=== PATIENT | male | born 1990 | race Caucasian/White ===

== ENCOUNTER 2018-02-09 22:02 | Emergency (ER) | payer SELFPAY ==
[2018-02-09] MEDS ORDERED: Sodium Chloride 0.9% 1,000 ML IV ONE (22:14)
--- NOTE | 2018-02-09 22:14 | C.PDOC ---
History Of Present Illness Patient presents with worsening mid epigastric pain for over the last 2 days. Has low grade fever, no nausea, vomiting, diarrhea or constipation. Tolerating po. Has not taken anything for his discomfort Time Seen by Provider: 02/09/18 22:13 Chief Complaint (Nursing): Abdominal Pain History Per: Patient History/Exam Limitations: no limitations Onset/Duration Of Symptoms: Days (2) Current Symptoms Are (Timing): Still Present Context: Other Severity: Moderate Pain Scale Rating Of: 4 Location Of Pain/Discomfort: Epigastric Radiation Of Pain To:: None Quality Of Discomfort: Dull, Aching Associated Symptoms: Fever. denies: Nausea, Vomiting Exacerbating Factors: None Alleviating Factors: None Last Bowel Movement: Yesterday Recent travel outside of the [place]: No Additional History Per: Family Past Medical History Reviewed: Historical Data, Nursing Documentation, Vital Signs Vital Signs: Last Vital Signs Temp 99.3 F 02/09/18 22:05 Pulse 118 H 02/09/18 22:05 Resp 18 02/09/18 22:05 BP 160/100 H 02/09/18 22:05 Pulse Ox 98 02/09/18 22:21 - Medical History PMH: HTN Family History: States: No Known Family Hx - Social History Hx Alcohol Use: Yes Hx Substance Use: No - Immunization History Hx Tetanus Toxoid Vaccination: No Hx Influenza Vaccination: No Hx Pneumococcal Vaccination: No Review Of Systems Constitutional: Positive for: Chills. Negative for: Fever ENT: Negative for: Throat Pain Cardiovascular: Negative for: Chest Pain Respiratory: Negative for: Shortness of Breath Gastrointestinal: Positive for: Abdominal Pain. Negative for: Nausea, Vomiting , Constipation Genitourinary: Negative for: Dysuria Musculoskeletal: Negative for: Back Pain Skin: Negative for: Rash Neurological: Negative for: Weakness Psych: Positive for: Anxiety Physical Exam - Physical Exam Appears: Non-toxic, No Acute Distress Skin: Warm, Dry Head: Normacephalic Eye(s): bilateral: Normal Inspection Oral Mucosa: Moist Neck: Supple Chest: Symmetrical Cardiovascular: Rhythm Regular Respiratory: No Rales, No Rhonchi, No Wheezing Gastrointestinal/Abdominal: Bowel Sounds (tympanic to percussion), Soft, Tenderness, Distention (mild) Back: No CVA Tenderness Extremity: Normal ROM Extremity: Bilateral: Atraumatic Neurological/Psych: Oriented x3 Gait: Steady ED Course And Treatment - Laboratory Results Result Diagrams: 02/09/18 22:24 02/09/18 22:24 O2 Sat by Pulse Oximetry: 98 Pulse Ox Interpretation: Normal Reevaluation Time: 00:10 Reassessment Condition: Improved Medical Decision Making Medical Decision Making: Upon provider reevaluation patient is feeling better, is medically stable, and requires no further treatment in the ED at this time. Patient will be discharged home with Rx for flagyl. Counseling was provided and all questions were answered regarding diagnosis and need for follow up with the referred clinic. There is agreement to discharge plan. Return if symptoms persist or worsen. Disposition Counseled Patient/Family Regarding: Studies Performed, Diagnosis, Need For Followup, Rx Given - Disposition Referrals: [facility] [Outside] [facility] [Outside] Disposition: HOME/ ROUTINE Disposition Time: 22:14 Condition: FAIR Additional Instructions: Please return if symptoms recur Prescriptions: Metronidazole [Flagyl] 500 mg PO TID #21 tablet Instructions: Mesenteric Lymphadenitis Forms: [facility] (Thai) - Clinical Impression Clinical Impression: Abdominal pain, Mesenteric adenitis
[2018-02-09 22:28] LABS: BASO # 0.3 K/uL (0.0-0.2); BASO % 1.9 % (0.0-2.0); EOS # 0.2 K/uL (0.0-0.7); EOS % 0.9 % (0.0-4.0); HEMOGLOBIN 14.2 g/dL (12.0-18.0); LYMPH # 1.5 K/uL (1.0-4.3); LYMPH % 8.8 % (20.0-40.0); MEAN CORPUSCULAR HEMOGLOBIN 29.2 pg (27.0-31.0); MEAN CORPUSCULAR HGB CONC 33.9 g/dL (33.0-37.0); MEAN PLATELET VOLUME 7.1 fL (7.2-11.7); MONO # 0.6 K/uL (0.0-0.8); MONO % 3.6 % (0.0-10.0); NEUT # 14.2 K/uL (1.8-7.0); NEUT % 84.8 % (50.0-75.0); PLATELET COUNT 330 K/uL (130-400); RBC 4.87 Mil/uL (4.40-5.90); RED CELL DISTRIBUTION WIDTH 12.3 % (11.5-14.5); WHITE BLOOD COUNT 16.8 K/uL (4.8-10.8)
[2018-02-09] MEDS ORDERED: Sodium Chloride 0.9% 1,000 ML ONE (22:31)
[2018-02-09 22:35] LABS: PROTHROMBIN TIME 11.1 SECONDS (9.7-12.2)
[2018-02-09] MEDS ORDERED: Piperacillin/Tazobact 3.375 gm 100 ML IVPB STA (22:36)
[2018-02-09 22:46] LABS: ALB/GLOB RATIO 1.2 (1.0-2.1); ALBUMIN 4.4 g/dL (3.5-5.0); ALT/SGPT 48 U/L (21-72); AST/SGOT 42 U/L (17-59); BLOOD UREA NITROGEN 9 mg/dL (9-20); CALCIUM 8.9 mg/dl (8.6-10.4); GFR AFRICAN-AMERICAN > 60; GFR NON-AFRICAN AMERICAN > 60; LIPASE 86 U/L (23-300)
[2018-02-09 22:55] LABS: BANDS 7 % (0-2); LYMPHOCYTE 10 % (20-40); MONOCYTE 11 % (0-10); NEUTROPHIL 72 % (50-75); PLATELET ESTIMATE NORMAL (NORMAL); TOTAL CELLS COUNTED 100
[2018-02-09] MEDS ORDERED: Piperacill/Tazo 3.375gm in Dex 3.375 GM/50 ML BAG IVPB STA (22:59)
[2018-02-09 23:10] LABS: SQUAMOUS EPITHIAL < 1 /hpf (0-5); URINE BACTERIA RARE (<OCC); URINE BILIRUBIN NEGATIVE (NEGATIVE); URINE BLOOD NEGATIVE (NEGATIVE); URINE CLARITY Clear (Clear); URINE COLOR Yellow (YELLOW); URINE GLUCOSE (UA) NORMAL (Normal); URINE LEUKOCYTE ESTERASE NEG Leu/uL (Negative); URINE PROTEIN NEGATIVE (NEGATIVE); URINE UROBILINOGEN NORMAL mg/dL (0.2-1.0)
[2018-02-09] MEDS ORDERED: Iodixanol 320 MG/ML 100 ML BOTTLE IV ONE (23:24)
[2018-02-10 00:25] VITALS: BP 109/71; PULSE 100; RESP 16; TEMP 99; O2SAT 99
--- NOTE | 2018-02-10 11:19 | CT ---
PROCEDURE: CT scan of the abdomen and pelvis dated 02/09/2018 HISTORY: Mid epigastric pain, leukocytosis COMPARISON: None TECHNIQUE: Contiguous helical/transaxial images of the abdomen and pelvis performed the following intravenous injection of approximately 100 cc Visipaque 320 contrast material. Oral contrast not administered per request on the study is therefore somewhat limited. Additional 2 dimensional sagittal and coronal reformats generated. Radiation dose: Total exam DLP = 343.[address] exam was performed using one or more of the following dose reduction techniques: Automated exposure control, adjustment of the mA and/or kV according to patient size, and/or use of iterative reconstruction technique. FINDINGS: LOWER THORAX: Heart size normal. No significant pericardial effusion. No evidence of basilar infiltrate effusion or pneumothorax. Tiny hiatal hernia. LIVER: Liver is upper limits of normal/borderline enlarged measuring approximately 18.6 cm in CC dimension. Suspect minimal fatty hepatic infiltration. Small approximately 1.5 cm enhancing mass left lobe liver may represent a hemangioma. Followup nonemergent three-phase CT scan of the liver could be performed to confirm. No gross intrahepatic biliary ductal dilatation. Portal and splenic veins are opacified. . GALLBLADDER AND BILE DUCTS: Unremarkable. PANCREAS: Unremarkable. No mass. No ductal dilatation. SPLEEN: Unremarkable. No splenomegaly. ADRENALS: Unremarkable. KIDNEYS AND URETERS: Unremarkable. No stone or hydronephrosis. BLADDER: Grossly unremarkable. REPRODUCTIVE: Unremarkable. APPENDIX: Normal-appearing appendix best seen on coronal image number [id number]. BOWEL: Evaluation of the bowel is limited due to the lack of oral contrast material. The stomach is decompressed. Visualized loops of small bowel exhibit normal contour and caliber. No evidence acute mechanical small bowel obstruction. The the there are multiple nondistended slightly thick-walled loops of small bowel seen in the left upper and mid abdomen suggesting underlying enteritis. No evidence of acute mechanical small bowel obstruction. Moderate amount of stool seen throughout most of the colon suggesting mild fecal retention/ constipation as well PERITONEUM: Unremarkable. No fluid collection. No free air. Small fat containing umbilical hernia. LYMPH NODES: Multiple small to mildly enlarged mesenteric lymph nodes are present consistent with mesenteric adenitis. . Multiple small to medium sized retroperitoneal lymph nodes also present. VASCULATURE: Unremarkable. No aortic aneurysm. BONES: Minor degenerative spondylosis of the lower thoracic spine. . There is a small sclerotic lesion within the left acetabulum likely representing bone island or osteoma. There is a tiny sclerotic focus within the region the right greater trochanter that may also represent bone island or osteoma. OTHER FINDINGS: None. IMPRESSION: Findings suggest the small bowel enteritis. . There are multiple small to medium-sized mesenteric lymph nodes consistent with mesenteric adenitis. There also appear to be multiple small medium sized retroperitoneal lymph nodes. Probable small hemangioma within the left lobe liver for which follow-up studies could be performed confirm. Preliminary report provided by overnight radiology service
== END 2018-02-10 00:42 | disposition home or self-care (01) ==
LOC: C.ER 22:02
DX: I88.0 Nonspecific mesenteric lymphadenitis (principal); R10.9 Unspecified abdominal pain; I10 Essential (primary) hypertension
CPT/HCPCS: 74177; 80053; 81001; 83690; 85025; 85610; 85730; 96374; 96375; 99285; J1885; J7040; Q9967